=== PATIENT | female | born 1935 | race Two or more races ===

== ENCOUNTER 2016-12-31 10:12 | Inpatient (IN) | payer MEDICARE ==
[~2016-12-31] VITALS: Ht 152.4 cm; Wt 52.2 kg
[~2016-12-31 10:12] MED LIST: ATOR10TA PO; DOCU-270 PO; DONE5TAB34 PO; FLUT1DIS3 IH; FOLI1TAB16 PO; LORA10TA7 PO; MEMA10TA PO; MEMA5TAB PO; MIRT30TA7 PO; OMEP10CA4 PO; QUET25TA PO; SUCR1TAB PO; TIOT18CA3 IH
[2016-12-31] MEDS ORDERED: IV SET PRIMARY PUMP SET 1 EA INFUS.SET MC ONE ×2 (10:45→14:17)
[2016-12-31] MEDS ORDERED: [UNRECOGNIZED DRUG - CODE] PO (10:57)
[2016-12-31] MEDS ORDERED: ASPI81TA2 PO (10:57)
[2016-12-31] MEDS ORDERED: IPRA3AMP IH (10:57)
[2016-12-31] MEDS ORDERED: BUDE0.5A4 IH (10:57)
[2016-12-31] MEDS ORDERED: DIGO125T PO (10:57)
[2016-12-31] MEDS ORDERED: ZINC220C8 PO (10:57)
[2016-12-31] MEDS ORDERED: ASCO500T9 PO (10:57)
[2016-12-31] MEDS ORDERED: DIVA125T2 PO (10:57)
[2016-12-31] MEDS ORDERED: DRON400T2 PO (10:57)
[2016-12-31] MEDS ORDERED: IV NS 0.9% 1,000 ML BAG IV ONE (11:00)
[2016-12-31 11:03] LABS: BASOPHILS # (AUTO) 0.1 /CMM (0.0-0.2); BASOPHILS % (AUTO) 0.9 % (0.0-2.0); DIFF TOTAL % 100 %; EOSINOPHILS # (AUTO) 0.2 /CMM (0.0-0.7); EOSINOPHILS % (AUTO) 3.7 % (0.0-6.0); HEMATOCRIT 37 % (33-45); HEMOGLOBIN 12.1 g/dL (11.5-14.8); LYMPHOCYTES # (AUTO) 1.3 /CMM (0.8-4.8); LYMPHOCYTES % (AUTO) 22.1 % (20.0-44.0); MEAN CORPUSCULAR HEMOGLOBIN 29 PG (26.0-33.0); MEAN CORPUSCULAR HGB CONC 33 g/dl (31.0-36.0); MEAN CORPUSCULAR VOLUME 88 fL (82-100); MONOCYTES # (AUTO) 0.5 /CMM (0.1-1.30); MONOCYTES % (AUTO) 8.8 % (2.0-12.0); NEUTROPHILS # (AUTO) 3.6 /CMM (1.8-8.9); NEUTROPHILS % (AUTO) 64.5 % (43.0-81.0); PLATELET COUNT (AUTO) 336 /CMM (150-450); RED BLOOD CELL COUNT(AUTO) 4.17 MIL/uL (4.0-5.2); WHITE BLOOD COUNT (AUTO) 5.7 K/uL (4.3-11.0)
[2016-12-31 11:13] LABS: ANION GAP 5 (5-14); CALCIUM, SERUM 8.7 mg/dL (8.5-10.1); CARBON DIOXIDE 38 mmol/L (21-32); CHLORIDE 105 mmol/L (98-107); CREATININE 1.1 mg/dL (0.6-1.3); GLUCOSE 122 mg/dL (74-106); POTASSIUM 4.3 mmol/L (3.5-5.1); SODIUM SERUM 143 mmol/L (136-145); UREA NITROGEN, BLOOD 15 mg/dL (7-18)
[2016-12-31 11:18] LABS: INR 1.02 (0.87-1.13); PROTHROMBIN TIME 10.7 SECS (9.5-12.7)
[2016-12-31 11:19] LABS: ALANINE AMINOTRANSFERASE 23 U/L (12-78); ALBUMIN 2.7 g/dL (3.4-5.0); ASPARTATE AMINOTRANSFERASE 29 U/L (15-37); BILIRUBIN,DIRECT 0.1 mg/dL (0.0-0.2); BILIRUBIN,TOTAL 0.2 mg/dL (0.2-1.0); INDIRECT BILIRUBIN 0.1 mg/dL (0.0-1.1)
[2016-12-31 11:21] LABS: TROPONIN I < 0.017 ng/mL (0.00-0.056)
[2016-12-31 11:32] LABS: LACTIC ACID 2.5 mmol/L (0.4-2.0)
[2016-12-31 11:36] LABS: KETONES,URINE Negative (NEGATIVE); LEUKOCYTE ESTERASE ,URINE Small (NEGATIVE)
[2016-12-31 11:40] LABS: ADD UA MICROSCOPIC YES
[2016-12-31 11:54] LABS: ADD URINE CULTURE YES; RBC,URINE 0-3 /HPF (0-2)
[2016-12-31 12:00] LABS: *LACTIC ACID REFLEX FLAG YES
[2016-12-31] MEDS ORDERED: ACETAMINOPHEN 325 MG TABLET PO PRN (13:30)
[2016-12-31] MEDS ORDERED: PANTOPRAZOLE 40 MG TABLET.DR PO SCH (13:30)
[2016-12-31] MEDS ORDERED: ONDANSETRON HCL/PF 4 MG/2 ML VIAL IVP PRN (13:30)
[2016-12-31] MEDS ORDERED: MAG HYDROX/AL HYDROX/SIMETH 30 ML UDC PO PRN (13:30)
[2016-12-31] MEDS ORDERED: HYDROCODONE/APAP 5/325MG 1 EACH TABLET PO PRN (13:30)
[2016-12-31 13:40] VITALS: BP 104/53
[2016-12-31] MEDS: IV NS 0.9% 1,000 ML IV PRN (14:27)
[2016-12-31] MEDS: SUCRALFATE 1 G TABLET PO SCH ×2 (14:36→16:50)
[2016-12-31] MEDS: DIVALPROEX SODIUM 125 MG TABLET.DR PO SCH ×2 (14:37→16:32)
[2016-12-31 16:00] VITALS: BP 122/61
[2016-12-31] MEDS: DRONEDARONE HYDROCHLORIDE 400 MG TABLET PO SCH (16:46)
[2016-12-31] MEDS: QUETIAPINE FUMARATE 25 MG TABLET PO SCH (16:46)
[2016-12-31] MEDS ORDERED: Z GUARD REMEDY 2 OZ OINT TP PRN (17:00)
[2016-12-31] MEDS: LACTAID 1 TAB TABLET PO SCH (17:00)
[2016-12-31 20:00] VITALS: BP 109/69
[2016-12-31] MEDS: ALBUTEROL FS 2.5 MG/3 ML VIAL.NEB NEB SCH (20:48)
[2016-12-31] MEDS: IPRATROPIUM NEB FS 0.5 MG/2.5 ML AMPUL.NEB NEB SCH (20:48)
[2016-12-31] MEDS ORDERED: SECONDARY IV SET 1 EA INFUS.SET MC ONE ×2 (21:09→21:48)
[2016-12-31] MEDS: CEFTRIAXONE 1 G in IV D5W 50 ML IV SCH (21:10)
[2016-12-31] MEDS: BUDESONIDE RESPULE INH 0.5 MG/2 ML AMPUL.NEB NEB SCH (21:16)
[2016-12-31] MEDS: MEMANTINE HCL 5 MG TABLET PO SCH (21:40)
[2016-12-31] MEDS: DIGOXIN 0.125 MG TABLET PO SCH (21:40)
[2016-12-31] MEDS: ATORVASTATIN 10 MG TABLET PO SCH (21:41)
[2016-12-31] MEDS: DONEPEZIL 5 MG TABLET PO SCH (21:41)
[2016-12-31] MEDS: LORATADINE 10 MG TABLET PO SCH (21:41)
[2016-12-31] MEDS: FOLIC ACID 1 MG TABLET PO SCH (21:41)
[2016-12-31] MEDS: MIRTAZAPINE 15 MG TABLET PO SCH (21:41)
[2016-12-31] MEDS: AZITHROMYCIN 500 MG in IV D5W 250 ML IV SCH (21:50)
[2016-12-31] MEDS ORDERED: ZOLPIDEM TARTRATE 5 MG TABLET PO PRN (22:00)
[2016-12-31] MEDS ORDERED: MAGNESIUM HYDROXIDE 30 ML UDC PO PRN (22:00)
[2017-01-01] MEDS: ALBUTEROL FS 2.5 MG/3 ML VIAL.NEB NEB SCH ×4 (01:17→20:19)
[2017-01-01] MEDS: IPRATROPIUM NEB FS 0.5 MG/2.5 ML AMPUL.NEB NEB SCH ×4 (01:17→20:19)
[2017-01-01 06:26] LABS: BASOPHILS # (AUTO) 0.1 /CMM (0.0-0.2); BASOPHILS % (AUTO) 1.3 % (0.0-2.0); DIFF TOTAL % 100 %; EOSINOPHILS # (AUTO) 0.2 /CMM (0.0-0.7); EOSINOPHILS % (AUTO) 3.7 % (0.0-6.0); HEMATOCRIT 31 % (33-45); HEMOGLOBIN 10.1 g/dL (11.5-14.8); LYMPHOCYTES # (AUTO) 1.5 /CMM (0.8-4.8); LYMPHOCYTES % (AUTO) 28.4 % (20.0-44.0); MEAN CORPUSCULAR HEMOGLOBIN 29 PG (26.0-33.0); MEAN CORPUSCULAR HGB CONC 33 g/dl (31.0-36.0); MEAN CORPUSCULAR VOLUME 88 fL (82-100); MONOCYTES # (AUTO) 0.5 /CMM (0.1-1.30); MONOCYTES % (AUTO) 8.7 % (2.0-12.0); NEUTROPHILS # (AUTO) 3.1 /CMM (1.8-8.9); NEUTROPHILS % (AUTO) 57.9 % (43.0-81.0); PLATELET COUNT (AUTO) 244 /CMM (150-450); WHITE BLOOD COUNT (AUTO) 5.3 K/uL (4.3-11.0)
[2017-01-01 06:47] LABS: CALCIUM, SERUM 8.3 mg/dL (8.5-10.1); CREATININE 0.8 mg/dL (0.6-1.3); PHOSPHORUS 3.8 mg/dL (2.5-4.9)
[2017-01-01] MEDS: BUDESONIDE RESPULE INH 0.5 MG/2 ML AMPUL.NEB NEB SCH ×2 (07:24→20:19)
[2017-01-01 08:00] VITALS: BP 101/48
[2017-01-01] MEDS: ASPIRIN 81 MG TAB.CHEW PO SCH (08:56)
[2017-01-01] MEDS: ZINC SULFATE 220 MG CAPSULE PO SCH (08:56)
[2017-01-01] MEDS: SUCRALFATE 1 G TABLET PO SCH ×3 (08:56→17:37)
[2017-01-01] MEDS: DIVALPROEX SODIUM 125 MG TABLET.DR PO SCH ×3 (08:56→17:37)
[2017-01-01] MEDS: DOCUSATE SODIUM 100 MG CAPSULE PO SCH (08:56)
[2017-01-01] MEDS: QUETIAPINE FUMARATE 25 MG TABLET PO SCH ×2 (08:56→17:37)
[2017-01-01] MEDS: PANTOPRAZOLE 40 MG TABLET.DR PO SCH (08:56)
[2017-01-01] MEDS: DRONEDARONE HYDROCHLORIDE 400 MG TABLET PO SCH ×2 (08:57→17:37)
[2017-01-01] MEDS: ASCORBIC ACID 500 MG TABLET PO SCH (08:57)
[2017-01-01] MEDS: MEMANTINE HCL 5 MG TABLET PO SCH ×2 (08:57→21:48)
[2017-01-01] MEDS: LACTAID 1 TAB TABLET PO SCH ×2 (11:38→17:37)
[2017-01-01 16:00] VITALS: BP 96/50
[2017-01-01] MEDS: LACTOBACILLUS RHAMNOSUS GG 1 EACH CAP.SPRINK PO SCH (17:37)
[2017-01-01 20:00] VITALS: BP 92/46
[2017-01-01] MEDS: CEFTRIAXONE 1 G in IV D5W 50 ML IV SCH (20:37)
[2017-01-01 20:41] VITALS: BP 92/46
[2017-01-01] MEDS: AZITHROMYCIN 500 MG in IV D5W 250 ML IV SCH (21:22)
[2017-01-01] MEDS: LORATADINE 10 MG TABLET PO SCH (21:46)
[2017-01-01] MEDS: DONEPEZIL 5 MG TABLET PO SCH (21:46)
[2017-01-01] MEDS: ATORVASTATIN 10 MG TABLET PO SCH (21:47)
[2017-01-01] MEDS: FOLIC ACID 1 MG TABLET PO SCH (21:47)
[2017-01-01] MEDS: DIGOXIN 0.125 MG TABLET PO SCH (21:47)
[2017-01-01] MEDS: MIRTAZAPINE 15 MG TABLET PO SCH (21:48)
[2017-01-02] MEDS: IPRATROPIUM NEB FS 0.5 MG/2.5 ML AMPUL.NEB NEB SCH ×4 (02:02→19:18)
[2017-01-02] MEDS: ALBUTEROL FS 2.5 MG/3 ML VIAL.NEB NEB SCH ×4 (02:03→19:18)
[2017-01-02 08:00] VITALS: BP 100/53
[2017-01-02] MEDS: BUDESONIDE RESPULE INH 0.5 MG/2 ML AMPUL.NEB NEB SCH ×4 (08:14→20:43)
[2017-01-02] MEDS: SUCRALFATE 1 G TABLET PO SCH ×3 (08:24→17:17)
[2017-01-02] MEDS: DIVALPROEX SODIUM 125 MG TABLET.DR PO SCH ×3 (08:24→17:17)
[2017-01-02] MEDS: PANTOPRAZOLE 40 MG TABLET.DR PO SCH (08:24)
[2017-01-02] MEDS: ASPIRIN 81 MG TAB.CHEW PO SCH (08:24)
[2017-01-02] MEDS: ZINC SULFATE 220 MG CAPSULE PO SCH (08:24)
[2017-01-02] MEDS: LACTOBACILLUS RHAMNOSUS GG 1 EACH CAP.SPRINK PO SCH ×2 (08:24→17:17)
[2017-01-02] MEDS: QUETIAPINE FUMARATE 25 MG TABLET PO SCH ×2 (08:24→17:17)
[2017-01-02] MEDS: DOCUSATE SODIUM 100 MG CAPSULE PO SCH (08:24)
[2017-01-02] MEDS: DRONEDARONE HYDROCHLORIDE 400 MG TABLET PO SCH ×2 (08:24→17:17)
[2017-01-02] MEDS: MEMANTINE HCL 5 MG TABLET PO SCH ×2 (08:24→22:15)
[2017-01-02] MEDS: ASCORBIC ACID 500 MG TABLET PO SCH (08:24)
[2017-01-02] MEDS: LACTAID 1 TAB TABLET PO SCH ×2 (08:25→17:17)
[2017-01-02] MEDS: ENOXAPARIN SODIUM 30 MG/0.3 ML DISP.SYRIN SQ SCH (11:29)
[2017-01-02] MEDS: POLYVINYL ALCOHOL 15 ML BOTTLE EACHEYE PRN (14:16)
[2017-01-02] MEDS: IV NS 0.9% 1,000 ML IV PRN (14:16)
[2017-01-02 16:00] VITALS: BP 103/51
[2017-01-02 19:35] VITALS: BP 112/54
[2017-01-02] MEDS: CEFTRIAXONE 1 G in IV D5W 50 ML IV SCH (19:48)
[2017-01-02 20:00] VITALS: BP 112/54
[2017-01-02] MEDS: AZITHROMYCIN 500 MG in IV D5W 250 ML IV SCH (20:40)
[2017-01-02] MEDS: MIRTAZAPINE 15 MG TABLET PO SCH (22:14)
[2017-01-02] MEDS: DIGOXIN 0.125 MG TABLET PO SCH (22:14)
[2017-01-02] MEDS: ATORVASTATIN 10 MG TABLET PO SCH (22:14)
[2017-01-02] MEDS: LORATADINE 10 MG TABLET PO SCH (22:15)
[2017-01-02] MEDS: DONEPEZIL 5 MG TABLET PO SCH (22:15)
[2017-01-02] MEDS: FOLIC ACID 1 MG TABLET PO SCH (22:15)
[2017-01-03] MEDS: ALBUTEROL FS 2.5 MG/3 ML VIAL.NEB NEB SCH ×4 (00:48→20:35)
[2017-01-03] MEDS: IPRATROPIUM NEB FS 0.5 MG/2.5 ML AMPUL.NEB NEB SCH ×4 (00:48→20:35)
[2017-01-03] MEDS: IV NS 0.9% 1,000 ML IV PRN ×2 (06:12→22:22)
[2017-01-03 07:48] VITALS: BP 143/74
[2017-01-03 08:00] VITALS: BP 143/74
[2017-01-03] MEDS: LACTAID 1 TAB TABLET PO SCH ×2 (08:34→17:30)
[2017-01-03] MEDS: SUCRALFATE 1 G TABLET PO SCH ×3 (08:34→17:29)
[2017-01-03] MEDS: ASPIRIN 81 MG TAB.CHEW PO SCH (08:35)
[2017-01-03] MEDS: QUETIAPINE FUMARATE 25 MG TABLET PO SCH ×2 (08:35→17:00)
[2017-01-03] MEDS: MEMANTINE HCL 5 MG TABLET PO SCH ×2 (08:35→22:04)
[2017-01-03] MEDS: ZINC SULFATE 220 MG CAPSULE PO SCH (08:35)
[2017-01-03] MEDS: DOCUSATE SODIUM 100 MG CAPSULE PO SCH (08:35)
[2017-01-03] MEDS: LACTOBACILLUS RHAMNOSUS GG 1 EACH CAP.SPRINK PO SCH ×2 (08:35→17:28)
[2017-01-03] MEDS: PANTOPRAZOLE 40 MG TABLET.DR PO SCH (08:35)
[2017-01-03] MEDS: DRONEDARONE HYDROCHLORIDE 400 MG TABLET PO SCH ×2 (08:35→17:29)
[2017-01-03] MEDS: DIVALPROEX SODIUM 125 MG TABLET.DR PO SCH ×3 (08:35→17:00)
[2017-01-03] MEDS: ASCORBIC ACID 500 MG TABLET PO SCH (08:35)
[2017-01-03] MEDS: POLYVINYL ALCOHOL 15 ML BOTTLE EACHEYE PRN (08:35)
[2017-01-03] MEDS: BUDESONIDE RESPULE INH 0.5 MG/2 ML AMPUL.NEB NEB SCH ×2 (10:08→20:41)
[2017-01-03] MEDS: ENOXAPARIN SODIUM 30 MG/0.3 ML DISP.SYRIN SQ SCH (11:40)
[2017-01-03 16:00] VITALS: BP_SYST 108; BP_DIAS 52; BP_DIAS 53
[2017-01-03 20:00] VITALS: BP 112/47
[2017-01-03] MEDS: CEFTRIAXONE 1 G in IV D5W 50 ML IV SCH (20:22)
[2017-01-03] MEDS ORDERED: AZITHROMYCIN 250 MG TABLET PO SCH (21:00)
[2017-01-03] MEDS: DONEPEZIL 5 MG TABLET PO SCH (22:04)
[2017-01-03] MEDS: MIRTAZAPINE 15 MG TABLET PO SCH (22:04)
[2017-01-03] MEDS: LORATADINE 10 MG TABLET PO SCH (22:04)
[2017-01-03] MEDS: DIGOXIN 0.125 MG TABLET PO SCH (22:06)
[2017-01-03] MEDS: FOLIC ACID 1 MG TABLET PO SCH (22:06)
[2017-01-03] MEDS: ATORVASTATIN 10 MG TABLET PO SCH (22:06)
[2017-01-04] MEDS: IPRATROPIUM NEB FS 0.5 MG/2.5 ML AMPUL.NEB NEB SCH ×3 (00:57→14:05)
[2017-01-04] MEDS: ALBUTEROL FS 2.5 MG/3 ML VIAL.NEB NEB SCH ×3 (00:57→14:05)
[2017-01-04 08:00] VITALS: BP 134/64
[2017-01-04] MEDS: LACTOBACILLUS RHAMNOSUS GG 1 EACH CAP.SPRINK PO SCH (09:23)
[2017-01-04] MEDS: ASPIRIN 81 MG TAB.CHEW PO SCH (09:23)
[2017-01-04] MEDS: ASCORBIC ACID 500 MG TABLET PO SCH (09:23)
[2017-01-04] MEDS: DRONEDARONE HYDROCHLORIDE 400 MG TABLET PO SCH ×2 (09:23→17:07)
[2017-01-04] MEDS: ZINC SULFATE 220 MG CAPSULE PO SCH (09:23)
[2017-01-04] MEDS: PANTOPRAZOLE 40 MG TABLET.DR PO SCH (09:24)
[2017-01-04] MEDS: DOCUSATE SODIUM 100 MG CAPSULE PO SCH (09:24)
[2017-01-04] MEDS: MEMANTINE HCL 5 MG TABLET PO SCH (09:24)
[2017-01-04] MEDS: DIVALPROEX SODIUM 125 MG TABLET.DR PO SCH ×3 (09:24→17:08)
[2017-01-04] MEDS: SUCRALFATE 1 G TABLET PO SCH ×3 (09:24→17:07)
[2017-01-04] MEDS: QUETIAPINE FUMARATE 25 MG TABLET PO SCH ×2 (09:24→17:08)
[2017-01-04] MEDS: LACTAID 1 TAB TABLET PO SCH ×2 (09:34→17:09)
[2017-01-04] MEDS: ENOXAPARIN SODIUM 30 MG/0.3 ML DISP.SYRIN SQ SCH (11:55)
[2017-01-04 16:00] VITALS: BP 128/69
== END 2017-01-04 17:15 | disposition home or self-care (01) | DRG 193 ==
LOC: ER 10:13 → MEDSG2 12:12
PROVIDERS: ADMIT Internal Medicine; ATTEND Internal Medicine
DX: J15.9 Unspecified bacterial pneumonia (principal); G93.41 Metabolic encephalopathy; E87.2 Acidosis; N39.0 Urinary tract infection, site not specified; R62.7 Adult failure to thrive; E86.0 Dehydration; H10.9 Unspecified conjunctivitis
CPT/HCPCS: 36415; 71010-TC; 80048-TC; 80061-TC; 80076-TC; 80162-TC; 81000-TC; 83605-TC; 83690-TC; 83735-TC; 84100-TC; 84484-TC; 85025-TC; 85730-TC; 87040-TC; 87081-TC; 87086-TC; 94799-TC; 97001-TC; 97003-TC; 97116-TC; 97530-TC; A4606; J0456; J0696; J1650; J7030; J7060; Z7610